=== PATIENT | female | born 1945 | race Caucasian/White ===

== ENCOUNTER 2016-09-29 11:14 | Emergency (ER) | payer MEDICARE ==
[~2016-09-29] VITALS: Ht 157.5 cm; Wt 90.9 kg
[~2016-09-29 11:14] MED LIST: ASPI-973 PO; CANA100T PO; CARV12.52 PO; LISI-567 PO; SIMV20TA4 PO
[2016-09-29 11:18] VITALS: BP 102/65; PULSE 60; RESP 18; O2SAT 97
--- NOTE | 2016-09-29 11:32 | ED.REPORT ---
HPI-Extremity Problem Lower Date of Service Sep 29, 2016 ED Provider: History of Present Illness: 01/26/2016, toes were amputated still not healed on right foot. Seeing Dr. Middleton podiatry. bobby Webster is primary care, Diabetic for the last 20 years. denies fevers or chills. Vascular surgery is in [place] Dr. Mccurdy. Last saw her 2 weeks ago. 11/03 took 2 pain pills this am. Nursing Notes Stated Complaint: RIGHT FOOT PAIN Chief Complaint: Extremity Trauma Nursing Notes Reviewed: Yes Allergies: Coded Allergies: hydromorphone HCl (Verified Adverse Reaction, Intermediate, Goofy per patient, 01/12/16) Scheduled Aspirin (Aspirin) 81 Mg Tablet 81 MG PO DAILY Carvedilol (Carvedilol) 12.5 Mg Tablet 12.5 MG PO BID Lisinopril (Lisinopril) 20 Mg Tablet 20 MG PO BID Simvastatin (Simvastatin) 20 Mg Tablet 20 MG PO HS Miscellaneous Medications Canagliflozin (Invokana) 100 Mg Tablet 100 MG PO General Time Seen by MD: 11:32 Chief Complaint Foot injury right Hx Obtained From: Patient Onset Occurred: More than a week ago... (>6 months) Symptom Duration: More than a week... (>6 months) Past Medical History Past Medical History vascular issues Reports: Diabetes mellitus, Hyperlipidemia, Hypertension, Denies: Asthma Past Surgical History foot surgery2015, triple bypass in 2010 Reports: Cholecystectomy Reports: Tubal ligation (in 1987) Smoking History Never Smoker Social History Alcohol Use: Denies alcohol use Drug Use: Denies drug use Occupation for 2 years, lives with son. 09/29/2016 Ambulatory Status Independent Review of Systems Basic Review of Systems Eyes: Vision NL, No discharge ENT: Hearing NL, No pain, No nasal congestion, No pharyngeal pain Respiratory: No shortness of breath, No cough, No wheeze Cardiovascular: No chest pain, No dyspnea on exertion, No orthopnea, No parox noct dyspnea, No palpitations GI: No abdominal pain, No anorexia, No nausea, No vomiting : No dysuria, No frequency Hematologic: No bleeding, No bruising Endocrine: No cold intolerance, No heat intolerance, No weight gain, No weight loss Allergy / Immune: No allergy Psychiatric: Normal thought content Physical Exam Initial Vital Signs Vital Signs (First) Date Time Temp Pulse Resp B/P Pulse Ox O2 Delivery O2 Flow Rate FiO2 09/29/16 11:18 36.2 60 18 102/65 97 Room Air Initial VS: Reviewed, Vital signs normal General/Constitutional: Well-developed, Well-nourished Head / Eyes: Atraumatic, Normocephalic, PERRL ENT: Mucous membranes moist, Conjunctiva normal, No scleral icterus Neck: Supple, Non-tender, Full range of motion Respiratory: Breath sounds normal, Clear to auscultation, No respiratory distress Cardiovascular: Regular rate & rhythm, Heart sounds normal, Intact distal pulses Abdomen / GI: Soft, Non-tender, No guarding, No rebound, No distention Back: No CVA tenderness Lymphatic: No lymphadenopathy Upper Extremities: Vascular intact, Neuro intact, No swelling, No tenderness Skin: Warm, Dry, No cyanosis Neurologic: Alert, Oriented, Nonfocal Psychiatric: Mood/affect normal, Behavior normal, Normal thought content Right Foot: Positive: Swelling present..., Tenderness present... right foot with toes amputated. erthyma surrounding some of foot. Area at stump with green odorus site. General/Constitutional: Awake, Alert, No acute distress Respiratory / Chest: Atraumatic, Breath sounds NL, Breath sounds = bilat, No respiratory distress Cardiovascular: Heart rate NL, Regular rhythm, Heart sounds NL, No gallop Skin: Atraumatic, Color NL, No rash Interpretation & Diagnostics Interpretation & Diagnostics: INDICATIONS: ? blood flow to foot TECHNIQUE: Color and pulse Doppler interrogation was performed of the right lower extremity arterial system, with image documentation. COMPARISON: [facility], XA, REVASC FEM/POP W/ STENT, 10/10/2012, 11:58. [facility], CT, ANGIO AORTA & RUN OFF, 10/09/2012, 18:03. FINDINGS: Common femoral artery: 134 cm/sec, with monophasic flow. Deep femoral artery: 120 cm/sec, with monophasic flow. Proximal superficial femoral artery: 93 cm/sec, with monophasic flow. Mid superficial femoral artery: 99 cm/sec, with monophasic flow. Distal superficial femoral artery: 85 cm/sec, with monophasic flow. Popliteal artery: 55 cm/sec, with monophasic flow. Posterior tibial artery: 33 cm/sec, with monophasic flow. Anterior tibial artery/dorsalis pedis: 14 cm/sec, with monophasic flow. Wilde-scale imaging description: Diffusely irregular right lower extremity arteries IMPRESSION: 1. Diminished flow signal in posterior tibial artery and the dorsal pedis artery. 2. Monophasic waveform and diffuse atherosclerotic plaques. No high-grade focal stenosis identified. Lab Results Interpretation Result Diagram: 09/29/16 1258 09/29/16 1258 Test 09/29/16 12:58 09/29/16 16:51 White Blood Count 10.0th/mm3 (3.8-10.1) Red Blood Count 3.20mil/mm3 (3.90-5.20) Hemoglobin 9.0g/dL (12.0-15.6) Hematocrit 29.8% (35.0-46.0) Mean Corpuscular Volume 93.1fL (81-100) Mean Corpuscular Hemoglobin 28.1pg (27.0-35.0) Mean Corpuscular Hemoglobin Concent 30.2% (32.0-37.0) Red Cell Distribution Width 14.7% (12.3-15.4) Platelet Count 193bil/L (150-400) Neutrophils (%) (Auto) 68.6% (40-74) Lymphocytes (%) (Auto) 14.2% (14-46) Monocytes (%) (Auto) 13.5% (4-12) Eosinophils (%) (Auto) 3.2% (0-5) Basophils (%) (Auto) 0.3% (0-3) Sodium Level 137mEq/L (134-144) Potassium Level 5.1mEq/L (3.5-5.2) Chloride Level 107mEq/L (97-108) Carbon Dioxide Level 15mmol/L (18-29) Blood Urea Nitrogen 39mg/dL (8-27) Creatinine 2.18mg/dL (0.57-1.00) Estimat Glomerular Filtration Rate 32mL/min (>59) Glucose Level 119mg/dL (60-99) Lactic Acid Level 1.2mmol/L (0.4-2.0) Calcium Level 9.3mg/dL (8.5-10.1) Magnesium Level 1.7mg/dL (1.6-2.6) Total Bilirubin 0.4mg/dL (0.0-1.2) Aspartate Amino Transf (AST/SGOT) 12U/L (0-50) Alanine Aminotransferase (ALT/SGPT) 7U/L (0-32) Alkaline Phosphatase 64U/L (25-165) Total Protein 7.8g/dL (6.4-8.4) Albumin 3.5g/dL (3.4-5.0) Troponin T 0.029ug/L (0.0-0.011) X-Ray Interpretation Xray Interpretation: Bones: Postoperative changes are present related to transmetatarsal amputations of the 1st through 5th metatarsals. The stumps are within normal limits. No definite erosions or suspicious osseous lesions are evident. The bone mineralization is diffusely decreased throughout the right foot. There is a prominent plantar calcaneal spur. No displaced fractures or dislocations are identified. Bony alignment is within normal limits. Soft tissues: Prominent soft tissue swelling about the distal aspect of the right foot is evident, predominantly seen along the dorsal aspect of the stump with an associated soft tissue wound evident with air tracking into the soft tissues. Scattered vascular calcifications are noted. IMPRESSION: 1. Status post transmetatarsal amputations of the forefoot without convincing radiographic findings of osteomyelitis. However, if there is high clinical concern for osteomyelitis, please consider obtaining a contrast enhanced MRI for further evaluation. 2. Soft tissue wound along the dorsal aspect of the right foot stump. Dictated by: Moses Vazquez M.D. on 09/29/2016 at 11:35 Approved by: Moses Vazquez M.D. on 09/29/2016 at 11:45 Re-Eval/Medical Decision Med Decision/Clinical Course Consult with Dr. Mccurdy and Dr. Ruelas, hospitalist. Patient is accepted at [facility] but is awaiting room placement. US does show greatly decrease blood flow to site.Wound is clearly infected. No sign of compartment syndrome or puncture wound.2054, ambulance arrives to transport patient to [facility]. Patient stable at time of transport. Discharge & Departure Impression: Primary Impression: Vascular insufficiency of extremity Additional Impression: Diabetic foot infection Disposition: Home Referrals: Bobby Webster MD (PCP) EDSupervising Provider for APC: Randal Cruz MD copies to: Bobby Webster MD, Sue ARNP Sep 29, 2016 11:32
[2016-09-29] MEDS ORDERED: Piperacillin-Tazo 3.375 Gm Inj 3.375 GM in Dextrose 5% Minibag Plus 50 ML IV ONE (12:00)
--- NOTE | 2016-09-29 12:59 | DRSVH ---
PROCEDURE: X-RAY RIGHT FOOT COMPLETE, MINIMUM THREE VIEWS ([id number]) INDICATIONS: foot pain with sores TECHNIQUE: 3 views of the foot were acquired. COMPARISON: None. FINDINGS: Bones: Postoperative changes are present related to transmetatarsal amputations of the 1st through 5t h metatarsals. The stumps are within normal limits. No definite erosions or suspicious osseous lesi ons are evident. The bone mineralization is diffusely decreased throughout the right foot. There is a prominent plantar calcaneal spur. No displaced fractures or dislocations are identified. Bony al ignment is within normal limits. Soft tissues: Prominent soft tissue swelling about the distal aspect of the right foot is evident, pr edominantly seen along the dorsal aspect of the stump with an associated soft tissue wound evident wi th air tracking into the soft tissues. Scattered vascular calcifications are noted. IMPRESSION: 1. Status post transmetatarsal amputations of the forefoot without convincing radiographic findings of osteomyelitis. However, if there is high clinical concern for osteomyelitis, please consider obta ining a contrast enhanced MRI for further evaluation. 2. Soft tissue wound along the dorsal aspect of the right foot stump. Dictated by: Moses Vazquez M.D. on 09/29/2016 at 11:35 Approved by: Moses Vazquez M.D. on 09/29/2016 at 11:45
[2016-09-29 13:21] LABS: BASOPHILS % (AUTO) 0.3 % (0-3); EOSINOPHILS % (AUTO) 3.2 % (0-5); MONOCYTES % (AUTO) 13.5 % (4-12); Mean Corpuscular Hemoglobin 28.1 pg (27.0-35.0); Mean Corpuscular Volume 93.1 fL (81-100); NEUTROPHILS % (AUTO) 68.6 % (40-74); Platelet Count 193 bil/L (150-400)
[2016-09-29 13:59] VITALS: BP 152/64; PULSE 54; RESP 16; O2SAT 99
[2016-09-29 14:06] LABS: TROPONIN T 0.036 ug/L (0.0-0.011)
[2016-09-29] MEDS ORDERED: 0.9% Sodium Chloride 1,000 ML IV ONE ×2 (14:40→19:15)
[2016-09-29 15:01] VITALS: BP 120/55; PULSE 52; RESP 16; O2SAT 99
--- NOTE | 2016-09-29 15:46 | DRSVH ---
PROCEDURE: US DUPLEX DOPPLER UNILATERAL LEG ARTERIES, RIGHT INDICATIONS: ? blood flow to foot TECHNIQUE: Color and pulse Doppler interrogation was performed of the right lower extremity arterial system, [facility] image documentation. COMPARISON: [facility], XA, REVASC FEM/POP W/ STENT, 10/10/2012, 11:58. [facility], CT, ANGIO AORTA & RUN OFF, 10/09/2012, 18:03. FINDINGS: Common femoral artery: 134 cm/sec, with monophasic flow. Deep femoral artery: 120 cm/sec, with monophasic flow. Proximal superficial femoral artery: 93 cm/sec, with monophasic flow. Mid superficial femoral artery: 99 cm/sec, with monophasic flow. Distal superficial femoral artery: 85 cm/sec, with monophasic flow. Popliteal artery: 55 cm/sec, with monophasic flow. Posterior tibial artery: 33 cm/sec, with monophasic flow. Anterior tibial artery/dorsalis pedis: 14 cm/sec, with monophasic flow. Wilde-scale imaging description: Diffusely irregular right lower extremity arteries IMPRESSION: 1. Diminished flow signal in posterior tibial artery and the dorsal pedis artery. 2. Monophasic waveform and diffuse atherosclerotic plaques. No high-grade focal stenosis identified. Dictated by: Elsa Ochoa M.D. on 09/29/2016 at 15:35 Approved by: Elsa Ochoa M.D. on 09/29/2016 at 15:44
[2016-09-29 19:28] VITALS: BP 141/61; PULSE 54; RESP 16; O2SAT 99
[2016-09-29 20:56] VITALS: BP 146/59; PULSE 62; O2SAT 98
[2016-09-29 21:00] VITALS: BP 146/59; PULSE 62; RESP 16; O2SAT 98
== END 2016-09-29 21:01 | disposition short-term general hospital (02) ==
LOC: SED 11:14
DX: I99.8 Other disorder of circulatory system (principal); L08.9 Local infection of the skin and subcutaneous tissue, unspecified; I10 Essential (primary) hypertension; E11.9 Type 2 diabetes mellitus without complications; E78.5 Hyperlipidemia, unspecified; Z79.82 Long term (current) use of aspirin; Z88.5 Allergy status to narcotic agent
CPT/HCPCS: 36415; 73630; 80053; 82948; 83605; 83735; 84484; 85025; 87040; 93005; 93926; 96361; 96365; 96366; 96367; 99285; J2543; J3370; J7030; J7060

== ENCOUNTER 2016-11-08 12:13 | Emergency (ER) | payer MEDICARE ==
[~2016-11-08] VITALS: Ht 160 cm; Wt 86.4 kg
[2016-11-08 12:16] VITALS: BP 134/74; PULSE 60; RESP 16; O2SAT 99
--- NOTE | 2016-11-08 13:26 | ED.REPORT ---
HPI-Extremity Problem Lower Date of Service November 08, 2016 ED Provider: Wilmer García DO 71 y/o female with a hx of [place], CHF, HTN and DM presents to the ED complaining of injury at the right knee stump, onset just prior to arrival. The pt reports that she had a [id number] amputation approximately 4 weeks ago. This morning , her left foot twisted and she fell on her amputated leg, causing wound dehiscence. As per her friend "she lost a lot of blood". The area around the wound on her right knee is swollen and tender. Nursing Notes Stated Complaint: FELL Chief Complaint: Extremity Trauma Nursing Notes Reviewed: Yes Allergies: Coded Allergies: hydromorphone HCl (Verified Adverse Reaction, Intermediate, Goofy per patient, 01/12/16) Scheduled Aspirin (Aspirin) 81 Mg Tablet 81 MG PO DAILY Carvedilol (Carvedilol) 12.5 Mg Tablet 12.5 MG PO BID Lisinopril (Lisinopril) 20 Mg Tablet 20 MG PO BID Simvastatin (Simvastatin) 20 Mg Tablet 20 MG PO HS Miscellaneous Medications Canagliflozin (Invokana) 100 Mg Tablet 100 MG PO General Time Seen by MD: 13:23 Chief Complaint Knee injury right (Below-the knee amputation site) Hx Obtained From: Patient Arrived By: Walk-in Onset Occurred: Just prior to arrival Symptom Duration: Since onset Caused by: Fall on ground Location: : Knee right Quality: Painful Severity: Current: Moderate Severity: Maximum: Moderate Recent Healthcare: Recent doctor visit Similar Sx Previous: No Past Medical History Past Medical History vascular issues Reports: Diabetes mellitus, Hyperlipidemia, Hypertension Past Surgical History foot surgery2015, triple bypass in 2010 CABG Reports: Cholecystectomy Reports: Tubal ligation Smoking History Never Smoker Social History Alcohol Use: Denies alcohol use Drug Use: Denies drug use Occupation for 2 years, lives with son. 09/29/2016 Ambulatory Status Independent Review of Systems Constitutional: Denies: Chills, Fever Musculoskeletal: Reports: Extremity pain (Right knee/stump pain), Extremity swelling (Right stump) Complete sys rev & neg: except as marked. Physical Exam Initial Vital Signs Vital Signs (First) Date Time Temp Pulse Resp B/P Pulse Ox O2 Delivery O2 Flow Rate FiO2 11/08/16 12:16 36.2 60 16 134/74 99 Room Air Initial VS: Reviewed Head / Eyes: Atraumatic, Normocephalic, PERRL Neck: Supple, Non-tender, Full range of motion Respiratory: Breath sounds normal, Clear to auscultation, No respiratory distress Cardiovascular: Regular rate & rhythm, Heart sounds normal, Intact distal pulses Abdomen / GI: Soft, Non-tender, No guarding, No rebound, No distention Upper Extremities: Vascular intact, Neuro intact, No swelling, No tenderness Skin: Warm, Dry, No cyanosis Neurologic: Alert, Oriented, Nonfocal Right BKA, wrapped. Complete dehiscence of the BKA wound. Ankle / Foot: Atraumatic, Full range of motion (Left foot), No deformity (Left foot), Neurologic intact (Left foot), Vascular intact (Left foot) General/Constitutional: Awake, Alert, Cooperative Distress / Hydration: Positive: Distress severe Interpretation & Diagnostics X-Ray Interpretation Xray Interpretation: IMPRESSION: No fracture or dislocation. Below knee amputation. Dictated by: Elsa Ochoa M.D. on 11/08/2016 at 14:01 Approved by: Elsa Ochoa M.D. on 11/08/2016 at 14:03 X-Ray Ordered: Tibia fibula right Interpretation / Wet Read by: Interpret - Radiologist Re-Eval/Medical Decision Med Decision/Clinical Course Patient had a mechanical ground-level fall and had complete dehiscence of her recent BKA surgical site, it does not appear that there is any significant wound healing or granulation over the course of a month. She has minimal bleeding on exam. Wet-to-dry dressings and a sterile bulky gauze were applied. Patient and her family requested transfer back to [facility] for the primary surgeon works. Will be transferred to [facility]. Source of Hx: Old records Re-Evaluation/Progress : Time of Eval: 14:33 Re-Evaluation/Progress Note: Pt rechecked. Discussed lab, imaging results. Pt requests transfer to to [facility]. Pt understands and agrees with the plan for admission. All questions addressed. Consultation #1: Referral / Consult Name: Emmanuel Sung DO Consulted With: Orthopedic Call Returned at: 14:46 It Help Desk Manager: Agrees with eval Note: Dr. Sung recommends calling general surgery. Consultation #2: Call Returned at: 15:22 It Help Desk Manager: Will see patient, Agrees with eval, Agrees with plan, Accepts admit Note: Dr. Mccurdy at [facility] accepts admit. Counseled Regarding: Diagnosis, Lab results, Need for transfer Discharge & Departure Impression: Primary Impression: Wound abscess Encounter type: initial encounter Qualified Code: T81.4XXA - Infection following a procedure, initial encounter Disposition: Transfer, Acute Care Facility Transfer Requested at: 15:22 Receiving Hospital: [facility], Dr. Mccurdy Transfer Accepted: Yes Transfer Reason: Patient request Spoke with: Attending physician Patient Status: Stable Patient Informed: Yes Discharge Condition All VS Reviewed: Yes Referrals: Bobby Webster MD (PCP) Scribe Attestation Portions of this note were transcribed by Anali Jordan. I, , personally performed the history, physical exam and medical decision-making;I reviewed and confirmed the accuracy of the information in the transcribed note. Signed by Estrella Wade. 11/08/16 [id number] copies to: Bobby Webster MD, Timothy S DO November 08, 2016 13:26 Anali Jordan November 08, 2016 17:33
--- NOTE | 2016-11-08 14:04 | DRSVH ---
PROCEDURE: X-RAY RIGHT TIBIA/FIBULA, TWO VIEWS ([id number]) INDICATIONS: fall, pain at stump TECHNIQUE: 2 views of the tibia and fibula were acquired. COMPARISON: None. FINDINGS: Bones: There is below knee amputation. No fractures or dislocations. No suspicious bony lesions. Soft tissues: No suspicious soft tissue calcifications or masses. IMPRESSION: No fracture or dislocation. Below knee amputation. Dictated by: Elsa Ochoa M.D. on 11/08/2016 at 14:01 Approved by: Elsa Ochoa M.D. on 11/08/2016 at 14:03
[2016-11-08 14:21] VITALS: BP 133/62; PULSE 59; RESP 20; O2SAT 97
[2016-11-08 19:15] VITALS: BP 138/68; PULSE 72; RESP 20; O2SAT 98
== END 2016-11-08 19:17 | disposition short-term general hospital (02) ==
LOC: SED 12:13
DX: T87.89 Other complications of amputation stump (principal); W18.39XA Other fall on same level, initial encounter; Y93.89 Activity, other specified; Y92.89 Other specified places as the place of occurrence of the external cause; Y99.8 Other external cause status; I11.0 Hypertensive heart disease with heart failure; E11.59 Type 2 diabetes mellitus with other circulatory complications; I50.9 Heart failure, unspecified; I25.2 Old myocardial infarction; E78.5 Hyperlipidemia, unspecified; Z89.511 Acquired absence of right leg below knee; Z95.1 Presence of aortocoronary bypass graft; Z79.82 Long term (current) use of aspirin; Z88.5 Allergy status to narcotic agent